=== PATIENT | male | born 1980 | race Caucasian/White ===

== ENCOUNTER → 2017-03-28 | Outpatient (CLI) | payer BC ==
[~2017-03-28] MED LIST: ALLO300T2 PO; ATOR10TA82 PO; FLUT0.0529 NAE
--- NOTE | 2017-03-28 10:46 | DIAGNOSTIC IMAGING REPORT ---
TWO VIEW CHEST CLINICAL HISTORY: Bronchitis. FINDINGS: PA and lateral chest radiographs are compared to study dated 10/28/2015. Patient is status post midline sternotomy and aortic valve replacement. The heart is top normal for projection. The pulmonary vasculature is noncongested. The lungs and pleural spaces are clear. There is no pneumothorax. The bony thorax appears intact. IMPRESSION: No active disease in the chest. Electronically signed by: Zeyad Madison M.D. 03/28/2017 10:45 AM Dictated Date/Time: 03/28/2017 10:44 AM
== END | disposition home or self-care (01) ==
LOC: C.RAD 10:01
PROVIDERS: ATTEND Internal Medicine
DX: J40 Bronchitis, not specified as acute or chronic (principal); Z95.2 Presence of prosthetic heart valve